=== PATIENT | female | born 1995 | race Hispanic/Latino ===

== ENCOUNTER 2018-08-12 09:50 | Emergency (ER) | payer OTHER ==
[2018-08-12 10:04] VITALS: BP 117/73; TEMP 98; O2SAT 98
[2018-08-12 10:53] LABS: SQUAMOUS EPITHIAL 4 /hpf (0-5); URINE BILIRUBIN NEGATIVE (NEGATIVE); URINE BLOOD NEGATIVE (NEGATIVE); URINE CLARITY SLIGHTY-CLOUDY (Clear); URINE COLOR YELLOW (YELLOW); URINE GLUCOSE (UA) NEG (NEGATIVE); URINE LEUKOCYTE ESTERASE NEG Leu/uL (Negative); URINE PROTEIN NEGATIVE (NEGATIVE); URINE UROBILINOGEN 0.2-1.0 mg/dL (0.2-1.0)
--- NOTE | 2018-08-12 10:53 | ED PDOC ---
HPI: Abdomen Time Seen by Provider: 08/12/18 10:24 Chief Complaint (Nursing): Abdominal Pain Chief Complaint (Provider): abdominal pain History Per: Patient History/Exam Limitations: no limitations Onset/Duration Of Symptoms: Hrs, Sudden Onset Current Symptoms Are (Timing): Still Present Associated Symptoms: Nausea. denies: Vomiting, Urinary Symptoms, Other (vaginal discharge or bleeding) Additional Complaint(s): Shahla Amaro is a 22 year old female, with no significant past medical history, who presents to the emergency department complaining of a lower abdominal pain that began suddenly at midnight during vaginal intercourse. Patie nt describes pain as a stabbing sensation. Patient states at onset she immediately doubled over in pain, began hyperventilating and felt nauseous. Patient further states during this episode she felt like she couldn't catch her breath. Per boyfriend, patient's hands became clenched and went white. She denies having similar episodes in the past. 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 Patient reports symptoms have mainly resolved except for the mild discomfort. Otherwise, she denies any fever, chills, vaginal discharge, vaginal bleeding or dysuria. No further medical complaints. 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 Past Medical History Reviewed: Historical Data, Nursing Documentation, Vital Signs Vital Signs: Last Vital Signs Temp 98 F 08/12/18 10:01 Pulse Resp BP 117/73 08/12/18 10:01 Pulse Ox 98 08/12/18 10:01 - Medical History PMH: No Chronic Diseases - Surgical History Surgical History: No Surg Hx - Family History Family History: States: Unknown Family Hx - Social History Current smoker - smoking cessation education provided: No Alcohol: Social Drugs: Denies - Allergies Allergies/Adverse Reactions: Allergies Allergy/AdvReac Type Severity Reaction Status Date / Time No Known Allergies Allergy Verified 08/12/18 10:01 Review of Systems ROS Statement: Except As Marked, All Systems Reviewed And Found Negative Constitutional: Negative for: Fever, Chills Gastrointestinal: Positive for: Nausea, Abdominal Pain Genitourinary Female: Negative for: Dysuria, Vaginal Discharge, Vaginal Bleeding Physical Exam - Reviewed Nursing Documentation Reviewed: Yes Vital Signs Reviewed: Yes - Physical Exam Appears: Positive for: No Acute Distress Head Exam: Positive for: ATRAUMATIC, NORMAL INSPECTION, NORMOCEPHALIC Skin: Positive for: Normal Color, Warm, Dry Eye Exam: Positive for: Normal appearance, EOMI, PERRL Neck: Positive for: Normal, Painless ROM Cardiovascular/Chest: Positive for: Regular Rate, Rhythm. Negative for: Murmur Respiratory: Positive for: Normal Breath Sounds. Negative for: Respiratory Di stress Gastrointestinal/Abdominal: Positive for: Normal Exam, Soft. Negative for: Tenderness, Guarding, Rebound Pelvic Exam: Positive for: Other (deferred) Back: Positive for: Normal Inspection. Negative for: L CVA Tenderness, R CVA Tenderness, Vertebral Tenderness Extremity: Positive for: Normal ROM (upper and lower extremities). Negative for: Deformity, Swelling Neurologic/Psych: Positive for: Alert, Oriented - Laboratory Results Result Diagrams: 08/12/18 10:45 08/12/18 10:45 - ECG O2 Sat by Pulse Oximetry: 98 (RA) Pulse Ox Interpretation: Normal Medical Decision Making Medical Decision Making: Time: 10:24 Initial Impression: work up for gynecologic abnormality. Possible ruptured cysts vs ovarian torsion. 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 Anteverted. Normal in size and appearance. No fibroid or other mass lesion seen. ENDOMETRIUM: Measures 14 mm in diameter. Unremarkable. CERVIX: No cervical abnormality identified. RIGHT OVARY: Measures 3.2 x 2.4 x 2.6 cm. No solid mass. Normal flow. LEFT OVARY: Measures 2.7 x 2.4 x 1.3 cm. No solid mass. Normal flow. FREE FLUID: Trace free fluid. OTHER FINDINGS: None. IMPRESSION: Unremarkable pelvic ultrasound. 14:05 No abnormalities on labs or ultrasound. Patient was given copy of ultrasound r eajerod. Patient advised to follow up with WORKCELL OPERATOR as needed. Return parameters discussed. ------- Scribe Attestation: Documented by Ramakrishna Pearce, acting as a scribe for Ophelia Sagastume MD Provider Scribe Attestation: All medical record entries made by the Scribe were at my direction and personally dictated by me. I have reviewed the chart and agree that the record accurately reflects my personal performance of the history, physical exam, medical decision making, and the department course for this patient. I have also personally directed, reviewed, and agree with the discharge instructions and disposition. Disposition - Clinical Impression Clinical Impression: Pelvic pain - Disposition Disposition: Routine/Home Disposition Time: 14:05 Condition: IMPROVED Instructions: Acute Abdomen (Belly Pain), Acute Pelvic Pain (DC) Forms: [employer] ([place]), [facility] School/Work Excuse
[2018-08-12 10:59] LABS: BASO % 0.4 % (0.0-2.0); EOS # 0.1 K/uL (0.0-0.7); EOS % 2.1 % (0.0-4.0); HEMOGLOBIN 12.7 g/dL (12.0-16.0); LYMPH # 1.3 K/uL (1.0-4.3); LYMPH % 22.4 % (20.0-40.0); MEAN CELL VOLUME 92.3 fl (81.0-99.0); MEAN CORPUSCULAR HEMOGLOBIN 30.6 pg (27.0-31.0); MEAN CORPUSCULAR HGB CONC 33.2 g/dL (33.0-37.0); MEAN PLATELET VOLUME 8.4 fl (7.2-11.7); MONO # 0.7 K/uL (0.0-0.8); MONO % 11.2 % (0.0-10.0); NEUT # 3.8 K/uL (1.8-7.0); NEUT % 63.9 % (50.0-75.0); RBC 4.14 Mil/uL (3.80-5.20); RED CELL DISTRIBUTION WIDTH 14.4 % (11.5-14.5); WHITE BLOOD COUNT 5.9 K/uL (4.8-10.8)
[2018-08-12 11:09] LABS: BLOOD UREA NITROGEN 11 mg/dl (7-17); CALCIUM 9.1 mg/dL (8.4-10.2); GFR NON-AFRICAN AMERICAN > 60
--- NOTE | 2018-08-12 13:27 | US ---
Date of service: 08/12/2018 HISTORY: severe pelvic pain following intercourse COMPARISON: None available. TECHNIQUE: Grayscale, color Doppler and spectral evaluation the pelvis performed transabdominally and transvaginally. FINDINGS: UTERUS: Measures 7.3 x 5.5 x 3.8 cm. Anteverted. Normal in size and appearance. No fibroid or other mass lesion seen. ENDOMETRIUM: Measures 14 mm in diameter. Unremarkable. CERVIX: No cervical abnormality identified. RIGHT OVARY: Measures 3.2 x 2.4 x 2.6 cm. No solid mass. Normal flow. LEFT OVARY: Measures 2.7 x 2.4 x 1.3 cm. No solid mass. Normal flow. FREE FLUID: Trace free fluid. OTHER FINDINGS: None. IMPRESSION: Unremarkable pelvic ultrasound.
== END 2018-08-12 14:41 | disposition home or self-care (01) ==
LOC: H.ER 09:50
DX: R10.2 Pelvic and perineal pain (principal)